=== PATIENT | male | born 1945 | race Caucasian/White ===

== ENCOUNTER 2016-11-28 15:44 | Observation (INO) | payer OTHER ==
[2016-11-28] VITALS (7 sets, daily range): BP systolic 137–180; BP diastolic 71–87; PULSE 50–71; RESP 16–20; TEMP 97.7–98.2; O2SAT 96–100
[~2016-11-28] VITALS: Ht 170.2 cm; Wt 76.0 kg
[2016-11-28] MEDS ORDERED: BACL10TA PO (16:05)
[2016-11-28] MEDS ORDERED: ASPI81CH CHEW (16:08)
[2016-11-28] MEDS ORDERED: TOPI1TAB31 PO (16:08)
[2016-11-28] MEDS ORDERED: VENL75TA PO (16:08)
--- NOTE | 2016-11-28 16:12 | PD ---
HPI Chief Complaint: Neuro Symptoms/ Deficits Time Seen by Provider: 16:12 Travel History International Travel<30 days: No Contact w/Intl Traveler<30days: No Traveled to known affect area: No History of Present Illness HPI 71-year-old male with a history of hyperlipidemia, anxiety, migraine headaches presents to the emergency department for evaluation of slurred speech and headache. The patient states that 2 hours ago he experienced slurred speech and difficulty speaking that lasted less than 60 seconds. States that he was the only person that noticed this slurred speech, no one else commented on it however he could feel that he had difficulty speaking. States that since then his speech has been normal. States that he has developed a headache over the past 2 hours. This is a slow onset headache, no thunderclap headache, denies this as the worst headache of his life. He does have a history of migraine headaches. He is also complaining of nausea. He denies any weakness, numbness or tingling, vision changes, dizziness, gait instability, chest pain, shortness of breath, abdominal pain, vomiting or diarrhea. PFSH Past Medical History Narrative Medical Hyperlipidemia Migraine headaches Anxiety Social History Tobacco Use: No Allergies-Medications (Allergen,Severity, Reaction): Coded Allergies: Bactrim (Verified Allergy, Severe, Hives, 11/28/16) Reported Meds & Prescriptions Reported Meds & Active Scripts Active Reported Multiple Vitamin 1 Tab 1 Tab PO DAILY Omeprazole 20 Mg Tab 20 Mg PO DAILY Quetiapine (Quetiapine Fumarate) 25 Mg Tab 25 Mg PO HS Topiramate 100 Mg Tab 100 Mg PO BID Baclofen 10 Mg Tab 10 Mg PO BID Review of Systems Except as stated in HPI: all other systems reviewed are Neg Physical Exam Narrative GENERAL: Well-nourished and well-developed pleasant male patient in no acute distress who is nontoxic appearing. SKIN: Warm and dry. HEAD: Normocephalic and atraumatic. EYES: No injection, drainage, or hyphema noted. PERRLA. EOMI. ENT: No nasal drainage noted. Oropharynx is clear. NECK: Supple and the trachea is midline. CARDIOVASCULAR: Regular rate and rhythm. RESPIRATORY: Breath sounds are equal bilaterally with no accessory muscle use, wheezing, rhonchi, or crackles. GASTROINTESTINAL: Abdomen is soft, non-tender, and nondistended. MUSCULOSKELETAL: No obvious deformities, swelling, cyanosis, or ecchymosis is present throughout the upper and lower extremities. Patient has full range of motion without any signs of neurovascular compromise. Strength 5/5 upper and lower extremities and equal bilaterally. NEUROLOGICAL: Awake, alert, and oriented. Normal speech and gait. Sensation is intact. Normal eldjly-da-etaa test. Normal rapid alternating movements. Normal ssgy-yf-vbxr test. Normal visual mon. Cranial nerves are grossly intact. Data Data Last Documented VS Vital Signs Date Time Temp Pulse Resp B/P Pulse Ox O2 Delivery O2 Flow Rate FiO2 11/28/16 15:58 70 18 180/87 100 Room Air 11/28/16 15:47 98.2 Orders Electrocardiogram (11/28/16 16:03) Prothrombin Time / Inr (Pt) (11/28/16 16:03) Act Partial Throm Time (Ptt) (11/28/16 16:03) Complete Blood Count With Diff (11/28/16 16:03) Comprehensive Metabolic Panel (11/28/16 16:03) Troponin I (11/28/16 16:03) Ct Brain W/O Iv Contrast(Rout) (11/28/16 16:03) Chest, Single Ap (11/28/16 16:03) Ecg Monitoring (11/28/16 16:03) Iv Access Insert/Monitor (11/28/16 16:03) Oximetry (11/28/16 16:03) Sodium Chloride 0.9% Flush (Ns Flush) (11/28/16 16:15) Ondansetron Inj (Zofran Inj) (11/28/16 16:15) Morphine Inj (Morphine Inj) (11/28/16 16:45) Admit Order (Ed Use Only) (11/28/16 17:36) Place In Observation (11/28/16 ) Vital Signs (Adult) Q4H (11/28/16 17:33) Neuro Checks Q4H (11/28/16 17:33) Activity Bed Rest With Brp (11/28/16 17:33) Bedside Glucose KASEY.AC&HS (11/28/16 17:33) Supervisor Wet Room / Telemetry .CONTINUOUS (11/28/16 17:33) Diet Npo (11/28/16 Dinner) D5-1/2 Ns + Kcl 20 Meq Inj (D5-1/2 Ns + (4/26/17 17:33) Sodium Chloride 0.9% Flush (Ns Flush) (11/28/16 17:45) Sodium Chloride 0.9% Flush (Ns Flush) (11/28/16 21:00) Acetaminophen (Tylenol) (11/28/16 17:45) Ondansetron Inj (Zofran Inj) (11/28/16 17:45) Basic Metabolic Panel (Bmp) (11/29/16 06:00) Complete Blood Count With Diff (11/29/16 06:00) Heparin Inj (Heparin Inj) (11/28/16 18:00) Naloxone Inj (Narcan Inj) (11/28/16 17:45) Vital Signs (Adult) Q2HX12,Q4H (11/28/16 17:33) Nih Stroke Scale - Nihss .Daily (11/28/16 17:33) Activity Oob Ad Hanny (11/28/16 17:33) Nursing Bedside Swallow Assess .ONCE (11/28/16 17:33) Scd Bilateral/Knee High KASEY.QSHIFT (11/28/16 17:33) Hemoglobin (Hgb) A1c (11/28/16 17:33) Lipid Profile (11/29/16 06:00) Us Carotid Arteries Comp Bilat (11/28/16 ) Mri Brain W/O Contrast (11/28/16 ) Consult Neurology (11/28/16 ) Sodium Chloride 0.9% Flush (Ns Flush) (11/28/16 21:00) Sodium Chloride 0.9% Flush (Ns Flush) (11/28/16 17:45) ^ Discontinue Insulin Orders (11/28/16 17:33) Insulin Aspart Supplemtl Scale (Novolog (11/28/16 21:00) Dextrose 50% In Reji (Vial) Inj (D50w (Vi (11/28/16 17:45) Glucagon Inj (Glucagon Inj) (11/28/16 17:45) Aspirin Chew (Aspirin Chew) (11/28/16 17:45) Labs Laboratory Tests Test 11/28/16 16:00 White Blood Count 5.6 TH/MM3 Red Blood Count 4.49 MIL/MM3 Hemoglobin 13.9 GM/DL Hematocrit 42.0 % Mean Corpuscular Volume 93.5 FL Mean Corpuscular Hemoglobin 30.9 PG Mean Corpuscular Hemoglobin 33.1 % Concent Red Cell Distribution Width 13.8 % Platelet Count 188 TH/MM3 Mean Platelet Volume 7.8 FL Neutrophils (%) (Auto) 39.4 % Lymphocytes (%) (Auto) 44.2 % Monocytes (%) (Auto) 9.3 % Eosinophils (%) (Auto) 6.5 % Basophils (%) (Auto) 0.6 % Neutrophils # (Auto) 2.2 TH/MM3 Lymphocytes # (Auto) 2.5 TH/MM3 Monocytes # (Auto) 0.5 TH/MM3 Eosinophils # (Auto) 0.4 TH/MM3 Basophils # (Auto) 0.0 TH/MM3 CBC Comment DIFF FINAL Differential Comment Prothrombin Time 11.1 SEC Prothromb Time International 1.0 RATIO Ratio Activated Partial 26.1 SEC Thromboplast Time Sodium Level 143 MEQ/L Potassium Level 3.7 MEQ/L Chloride Level 110 MEQ/L Carbon Dioxide Level 25.0 MEQ/L Anion Gap 8 MEQ/L Blood Urea Nitrogen 15 MG/DL Creatinine 1.10 MG/DL Estimat Glomerular Filtration 66 ML/MIN Rate Random Glucose 122 MG/DL Calcium Level 8.5 MG/DL Total Bilirubin 0.2 MG/DL Aspartate Amino Transf 24 U/L (AST/SGOT) Alanine Aminotransferase 35 U/L (ALT/SGPT) Alkaline Phosphatase 63 U/L Troponin I LESS THAN 0.02 NG/ML Total Protein 7.7 GM/DL Albumin 3.8 GM/DL MDM Medical Decision Making Medical Screen Exam Complete: Yes Emergency Medical Condition: Yes Differential Diagnosis TIA versus CVA versus migraine headache versus hypertensive urgency versus other Narrative Course 71-year-old male presents to the emergency department for evaluation of slurred speech and headache. Patient is afebrile. He is slightly hypertensive with a blood pressure of 180/87. Otherwise vital signs within normal limits. He had an episode of slurred speech lasting less than 1 minute about 2 hours ago. No focal neurologic deficits on examination. His symptoms have resolved with the exception of a headache. IV access is obtained, labs were drawn and sent. Patient was encouraged on dribbles oximeter monitoring. He is administered IV Zofran. CBC is unremarkable. CMP is unremarkable. Troponin is less than 0.02. Coags are unremarkable. Chest x-ray is negative for any acute abnormalities. Head CT is negative for any acute abnormalities. Labs and imaging are reassuring however the patient's description of symptoms is concerning for TIA. The patient will be kept in observation for TIA/CVA workup. I discussed this with the patient and family who are agreeable with this plan. I discussed the case with my attending physician Dr. Coffey who is aware of the patients history, physical examination findings, and treatment plan. Physician Communication Physician Communication I spoke with Dr. Valdemar ROSARIO who agrees to keep the patient under her service for observation. Diagnosis Primary Impression: TIA (transient ischemic attack) Qualified Code: G45.9 - Transient cerebral ischemia, unspecified type Admitting Information Admitting Physician Requests: Observation Brunilda Nguyen Nov 28, 2016 16:12
[2016-11-28] MEDS ORDERED: ONDANSETRON HCL 4 MG/2 ML VIAL IV PUSH ONE (16:15)
[2016-11-28] MEDS ORDERED: SODIUM CHLORIDE 0.9% FLUSH 10 ML FLUSH IVF PRN (16:15)
--- NOTE | 2016-11-28 16:22 | RADRPT ---
EXAM DATE/TIME: 11/28/2016 16:14 [facility] COMPARISON: No previous studies available for comparison. INDICATIONS : Short of breath. MEDICAL HISTORY : None. SURGICAL HISTORY : None. ENCOUNTER: Initial ACUITY: 1 day PAIN SCORE: 0/10 LOCATION: Bilateral chest FINDINGS: A single view of the chest demonstrates the lungs to be symmetrically aerated without evidence of mas s, infiltrate or effusion. The cardiomediastinal contours are unremarkable. Osseous structures are intact. CONCLUSION: No acute disease. Jack Ford MD on November 28, 2016 at 16:19 Board Certified Radiologist. This report was verified electronically.
[2016-11-28 16:26] LABS: AUTOMATED NEUTROPHIL # 2.2 TH/MM3 (1.8-7.7); BASOPHIL % 0.6 % (0.0-2.0); EOSINOPHIL # 0.4 TH/MM3 (0-0.4); EOSINOPHIL % 6.5 % (0.0-4.0); HEMO FLAGS DIFF FINAL; LYMPH % 44.2 % (9.0-44.0); LYMPHOCYTE # 2.5 TH/MM3 (1.0-4.8); MEAN CELL VOLUME 93.5 FL (80.0-100.0); MEAN CORPUSCULAR HEMOGLOBIN 30.9 PG (27.0-34.0); MEAN CORPUSCULAR HGB CONC 33.1 % (32.0-36.0); MONO % 9.3 % (0.0-8.0); NEUT % 39.4 % (16.0-70.0); PLATELET COUNT 188 TH/MM3 (150-450); RED BLOOD COUNT 4.49 MIL/MM3 (4.50-5.90); RED CELL DISTRIBUTION WIDTH 13.8 % (11.6-17.2); WHITE BLOOD COUNT 5.6 TH/MM3 (4.0-11.0)
[2016-11-28 16:29] LABS: APTT (PATIENT) 26.1 SEC (24.3-30.1); PROTHROMBIN TIME - PATIENT 11.1 SEC (9.8-11.6)
--- NOTE | 2016-11-28 16:31 | RADRPT ---
EXAM DATE/TIME: 11/28/2016 16:18 [facility] COMPARISON: No previous studies available for comparison. INDICATIONS : Possible CVA with headache. RADIATION DOSE: 56.35 CTDIvol (mGy) MEDICAL HISTORY : Skin cancer SURGICAL HISTORY : None. ENCOUNTER: Initial ACUITY: 1 day PAIN SCALE: 2/10 LOCATION: Bilateral cranial TECHNIQUE: Multiple contiguous axial images were obtained of the head. Using automated exposure control and adj ustment of the mA and/or kV according to patient size, radiation dose was kept as low as reasonably a chievable to obtain optimal diagnostic quality images. FINDINGS: CEREBRUM: The ventricles are normal for age. No evidence of midline shift, mass lesion, hemorrhage or acute in farction. No extra-axial fluid collections are seen. POSTERIOR FOSSA: The cerebellum and brainstem are intact. The 4th ventricle is midline. The cerebellopontine angle i s unremarkable. EXTRACRANIAL: The visualized portion of the orbits is intact. There is mild mucosal thickening in the left maxillar y sinus SKULL: The calvaria is intact. No evidence of skull fracture. CONCLUSION: 1. No acute hemorrhage, mass or evidence of infarction. 2. Mucosal thickening in the left maxillary sinus. Jack Ford MD on November 28, 2016 at 16:26 Board Certified Radiologist. This report was verified electronically.
[2016-11-28] MEDS ORDERED: OMEP20TA PO (16:34)
[2016-11-28] MEDS ORDERED: QUET1TAB7 PO (16:34)
[2016-11-28] MEDS ORDERED: MULTTAB67 PO (16:34)
[2016-11-28 16:35] LABS: ALT (GPT) 35 U/L (12-78); ANION GAP 8 MEQ/L (5-15); AST (GOT) 24 U/L (15-37); BLOOD UREA NITROGEN 15 MG/DL (7-18); CHLORIDE 110 MEQ/L (98-107); GLOMERULAR FILTRATION RATE 66 ML/MIN (>89); POTASSIUM 3.7 MEQ/L (3.5-5.1); SODIUM (NA) 143 MEQ/L (136-145)
[2016-11-28 16:39] LABS: ALKALINE PHOSPHATASE 63 U/L (45-117); TOTAL BILIRUBIN ADULT 0.2 MG/DL (0.2-1.0)
[2016-11-28] MEDS ORDERED: MORPHINE SULFATE 4 MG/ML INJ IV PUSH ONE (16:45)
[2016-11-28] MEDS ORDERED: ONDANSETRON HCL 4 MG/2 ML VIAL IVP PRN (17:45)
[2016-11-28] MEDS ORDERED: ASPIRIN 81 MG CHEW TAB PO ONE (17:45)
[2016-11-28] MEDS ORDERED: ACETAMINOPHEN 325 MG TAB PO PRN (17:45)
[2016-11-28] MEDS ORDERED: NALOXONE HCL 0.4 MG/ML AMP IV PRN (17:45)
[2016-11-28] MEDS ORDERED: GLUCAGON 1 MG/ML VIAL OTHER PRN (17:45)
[2016-11-28] MEDS ORDERED: SODIUM CHLORIDE 0.9% FLUSH 10 ML FLUSH IV FLUSH PRN ×2 (17:45)
[2016-11-28] MEDS ORDERED: DEXTROSE 50% IN WATER 50 ML VIAL(D50) IV PUSH PRN (17:45)
[2016-11-28] MEDS: HEPARIN SODIUM - SQ 10,000 UNITS/ML VIAL SQ SCH (17:59)
--- NOTE | 2016-11-28 18:03 | HHI.PR ---
Objective Objective Results - Vital Signs Date Time Temp Pulse Resp B/P Pulse Ox O2 Delivery O2 Flow Rate FiO2 11/28/16 15:58 70 18 180/87 100 Room Air 11/28/16 15:47 98.2 71 17 162/77 98 Result Diagram: 11/28/16 1600 11/28/16 1600 Other Results Laboratory Tests Test 11/28/16 16:00 White Blood Count 5.6 Red Blood Count 4.49 Hemoglobin 13.9 Hematocrit 42.0 Mean Corpuscular Volume 93.5 Mean Corpuscular Hemoglobin 30.9 Mean Corpuscular Hemoglobin 33.1 Concent Red Cell Distribution Width 13.8 Platelet Count 188 Mean Platelet Volume 7.8 Neutrophils (%) (Auto) 39.4 Lymphocytes (%) (Auto) 44.2 Monocytes (%) (Auto) 9.3 Eosinophils (%) (Auto) 6.5 Basophils (%) (Auto) 0.6 Neutrophils # (Auto) 2.2 Lymphocytes # (Auto) 2.5 Monocytes # (Auto) 0.5 Eosinophils # (Auto) 0.4 Basophils # (Auto) 0.0 CBC Comment DIFF FINAL Differential Comment Prothrombin Time 11.1 Prothromb Time International 1.0 Ratio Activated Partial 26.1 Thromboplast Time Sodium Level 143 Potassium Level 3.7 Chloride Level 110 Carbon Dioxide Level 25.0 Anion Gap 8 Blood Urea Nitrogen 15 Creatinine 1.10 Estimat Glomerular Filtration 66 Rate Random Glucose 122 Calcium Level 8.5 Total Bilirubin 0.2 Aspartate Amino Transf 24 (AST/SGOT) Alanine Aminotransferase 35 (ALT/SGPT) Alkaline Phosphatase 63 Troponin I LESS THAN 0.02 Total Protein 7.7 Albumin 3.8 Physical Exam Physical Exam PT seen & examined s/p transient slurring of speech Headache ASA neuro w/u neuro consult d/w messi H&P to follow Holly Branch MD Nov 28, 2016 18:03
[2016-11-28] MEDS: D5-1/2 NS + KCL 20 MEQ INJ 1,000 ML IV SCH (18:14)
--- NOTE | 2016-11-28 19:24 | RADRPT ---
EXAM DATE/TIME: 11/28/2016 18:20 [facility] COMPARISON: No previous studies available for comparison. INDICATIONS : Transient ischemic attack. MEDICAL HISTORY : Hyperlipidemia. Migraines. Anxiety. Slurred speech. SURGICAL HISTORY : None. ENCOUNTER: Initial ACUITY: 1 day PAIN SCORE: 0/10 LOCATION: Bilateral neck PEAK SYSTOLIC VELOCITIES (cm/sec): ICA/CCA RATIO: Right: 0.9 Left: 0.9 ICA: Right: 69 Left: 70 CCA: Right: 79 Left: 78 ECA: Right: 75 Left: 74 VERTEBRAL: Right: 42 antegrade Left: 58 antegrade Elevated flow velocities and ICA/CCA ratios have been found to correlate with increased degrees of vessel stenosis, calculated as percentage of diameter relative to a normal segment of distal ICA/CCA FINDINGS: RIGHT CAROTID: Trace plaque of the bulb and proximal internal carotid artery. LEFT CAROTID: Very mild plaque of the bulb and proximal internal carotid artery. VERTEBRAL ARTERIES: Antegrade flow is seen in both vertebral arteries. MISCELLANEOUS: None. CONCLUSION: Minimal amounts of plaque of both bifurcations. No carotid stenosis. Ramin Ontiveros MD on November 28, 2016 at 19:22 Board Certified Radiologist. This report was verified electronically.
[2016-11-28] MEDS: SODIUM CHLORIDE 0.9% FLUSH 10 ML FLUSH IV FLUSH SCH ×2 (20:23)
[2016-11-28] MEDS ORDERED: QUEtiapine FUMARATE 25 MG TAB PO SCH (21:00)
[2016-11-28] MEDS: INSULIN ASPART SUPPLEMENTAL SCALE SQ SCH (21:00)
[2016-11-28] MEDS: TOPIRAMATE 100 MG TAB PO SCH (21:37)
[2016-11-28] MEDS: BACLOFEN 10 MG TAB PO SCH (21:37)
[2016-11-28 22:28] LABS: HEMOGLOBIN A1a 1.2 %; HEMOGLOBIN A1b 1.8 %; HEMOGLOBIN Ao 84.4 %; HEMOGLOBIN LA1C 2.1 %; HEMOGLOBIN P3 3.9 %
[2016-11-29 03:25] VITALS: BP 112/58; PULSE 96; RESP 21; TEMP 97.6; O2SAT 96
[2016-11-29] MEDS: D5-1/2 NS + KCL 20 MEQ INJ 1,000 ML IV SCH ×2 (05:55→13:33)
[2016-11-29] MEDS: HEPARIN SODIUM - SQ 10,000 UNITS/ML VIAL SQ SCH (05:59)
[2016-11-29] MEDS: INSULIN ASPART SUPPLEMENTAL SCALE SQ SCH ×3 (06:03→16:00)
[2016-11-29 07:35] VITALS: BP 118/62; PULSE 55; RESP 20; TEMP 97.9; O2SAT 97
--- NOTE | 2016-11-29 08:23 | MH ---
cc: DICK BRANCH MD DATE OF ADMISSION 11/28/2016 DATE OF 1945 CHIEF COMPLAINT Slurred speech. Travel in the last 30 days none. HISTORY OF PRESENT ILLNESS This is a pleasant 71-year-old white male who has been in his usual state of health up until today. He states that he was riding in the back seat of a car going [place] the beach when he noticed his speech being slurred. He felt like that he could not get his words out and states that it only lasted for a few seconds. The patient states that since then he has started developing a mild headache. The patient does have a history of migraines and takes medication daily but states that he has not had a migraine headache in several years. The patient denies any weakness in his extremities. 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 He denies any chest pain. No shortness of breath. Denies any dysuria and states that he has had no problems with urination. Bowel regimen is normal. The patient had BMs x2 yesterday. The patient denies any chest pain. The patient states that he has never had any symptoms for stroke, but he had a funny sensation that he could not describe. The patient's affect is rather flat. He is a fair historian but does not elaborate on any information. No abdominal pain. He appears comfortable and has just been medicated for his headache. PAST MEDICAL HISTORY Includes: 1. Migraine headaches. 2. Anxiety. 3. Hyperlipidemia. 4. Skin cancer. 5. Muscle spasms. 6. Gastroesophageal reflux disease. 7. Seasonal allergies. PAST SURGICAL HISTORY 1. Removal of skin cancers on the top of his head. 2. Bilateral eye implants. ALLERGIES BACTRIM. SOCIAL HISTORY The patient has an occasional glass of wine socially, it is only every three to four weeks. The patient is , currently lives in the home with his . Denies any tobacco and no illicit drugs. MEDICATIONS Reported: 1. Multivitamins. 2. Omeprazole. 3. Baclofen. 4. Quetiapine. 5. Topiramate. REVIEW OF SYSTEMS 12-point review was obtained but information was sketchy and limited. Positives are noted in HPI, otherwise negative exam or unremarkable. PHYSICAL EXAMINATION VITAL SIGNS: Temperature is 98.2, pulse 71, respirations 18, blood pressure 162/77 and 180/87, O2 sat 98% on room air. GENERAL: Well-nourished, elderly white male looks to be his stated age, resting on a stretcher. He is calm and cooperative. SKIN: [place], warm and dry. HEENT: Atraumatic, normocephalic. Bilateral lens implants. Mucous membranes are pink and moist. No scleral icterus. NECK: Supple. CARDIOVASCULAR: S1-S2, soft systolic murmur grade 2/6 noted at the lower left sternal border. He has no edema and his pulses are intact. LUNGS: Sounds essentially clear anteriorly and posteriorly with no wheezes, rales or rhonchi. ABDOMEN: Round, soft, nontender. Active bowel sounds in all four quads. MUSCULOSKELETAL: He has equal hand laborer hide house. He can move his lower extremities. I see no weakness left to right. NEUROLOGIC: He is a fair historian. Speech is clear and normal appearing now. PSYCHIATRIC: Mood and affect are flat, but appropriate. DIAGNOSTIC DATA Sodium 143, potassium 3.7, chloride 110, carbon dioxide 25, anion gap 8, BUN 15, creatinine 1.1, GFR 66, random glucose 122. Hemoglobin A1c is pending. Troponin is less than 0.02. Albumin 3.8, total protein 7.7, WBC count 5.6, RBC 4.49, hemoglobin 13.9, hematocrit 42, platelet count 188. Differential blood count shows abnormal leukocyte percentage 44.2, monocyte 9.3, eosinophil 6.5. IMAGING Diagnostic data, chest x-ray is no acute disease examination. Head CT scan no acute hemorrhage, mass effect or infarction. Mucosal thickening of the left maxillary sinus. ASSESSMENT 1. Possible TIA, rule out CVA. 2. Migraine headaches. 3. Hyperlipidemia. 4. Hypertension. 5. Anxiety disorder. Our plan is to observe with observation. His vital signs will be q.4h along with neuro checks q.4. and as warranted. Bedrest activity for now. ECG monitoring. We will start the patient on aspirin. Check a lipid profile. Do a 2-D echo. Reconcile his home meds. Place him on Accu-Cheks a.c. and at bedtime with sliding scale. Currently diet will be n.p.o. We will start him on IV fluids D5 half normal with 20 of KCl. We will check carotid artery ultrasound. The patient states that he thought he had some blockage approximately 5 years ago but has not had any further testing since. After these tests are evaluated, the patient's course of treatment can be decided any further. We will consult neurology for their expert opinion on this case. The patient is full code, full aggressive care and we will follow. Dictated by: NYA Galvan MD DONOVAN Alejo/CABRERA /6:17 PM /8:20 AM PT seen & examined s/p transient slurring of speech Headache ASA neuro w/u neuro consult d/w messi H&P to follow Dick Branch MD Nov 28, 2016 18:03 [facility]
[2016-11-29 08:40] LABS: AUTOMATED NEUTROPHIL # 2.7 TH/MM3 (1.8-7.7); BASOPHIL % 0.3 % (0.0-2.0); EOSINOPHIL # 0.3 TH/MM3 (0-0.4); EOSINOPHIL % 4.6 % (0.0-4.0); HEMATOCRIT 40.7 % (39.0-51.0); HEMO FLAGS DIFF FINAL; LYMPH % 38.6 % (9.0-44.0); LYMPHOCYTE # 2.2 TH/MM3 (1.0-4.8); MEAN CELL VOLUME 93.3 FL (80.0-100.0); MEAN CORPUSCULAR HEMOGLOBIN 31.5 PG (27.0-34.0); MEAN CORPUSCULAR HGB CONC 33.8 % (32.0-36.0); MONO % 8.2 % (0.0-8.0); NEUT % 48.3 % (16.0-70.0); PLATELET COUNT 190 TH/MM3 (150-450); RED BLOOD COUNT 4.36 MIL/MM3 (4.50-5.90); RED CELL DISTRIBUTION WIDTH 13.5 % (11.6-17.2); WHITE BLOOD COUNT 5.6 TH/MM3 (4.0-11.0)
[2016-11-29] MEDS: BACLOFEN 10 MG TAB PO SCH (08:48)
[2016-11-29] MEDS: TOPIRAMATE 100 MG TAB PO SCH (08:48)
[2016-11-29] MEDS: SODIUM CHLORIDE 0.9% FLUSH 10 ML FLUSH IV FLUSH SCH ×2 (08:48)
[2016-11-29] MEDS ORDERED: ASPIRIN 325 MG TAB PO SCH (09:00)
--- NOTE | 2016-11-29 09:02 | HHI.PR ---
Subjective Subjective Remarks no slurring of speech no paresthesia mild frontal headache improving no n/v no cp no sob no fever at bsd Review of Systems Constitutional Constitutional Remarks 12 point ROS completed, negative except as noted above Vitals/Results Vital Signs Vital Signs Date Time Temp Pulse Resp B/P Pulse Ox O2 Delivery O2 Flow Rate FiO2 11/29/16 07:35 97.9 55 20 118/62 97 11/29/16 03:25 97.6 96 21 112/58 96 11/29/16 01:10 22 11/28/16 23:46 97.7 51 20 156/74 96 11/28/16 23:30 50 11/28/16 21:04 50 16 137/71 97 Room Air 11/28/16 19:21 50 18 159/74 100 Room Air 11/28/16 18:23 52 18 139/73 97 11/28/16 18:15 16 11/28/16 15:58 70 18 180/87 100 Room Air 11/28/16 15:47 98.2 71 17 162/77 98 CBC/BMP: 11/29/16 0620 11/28/16 1600 Lab Results Laboratory Tests Test 11/28/16 11/29/16 16:00 06:20 White Blood Count 5.6 TH/MM3 5.6 TH/MM3 Red Blood Count 4.49 MIL/MM3 4.36 MIL/MM3 Hemoglobin 13.9 GM/DL 13.7 GM/DL Hematocrit 42.0 % 40.7 % Mean Corpuscular Volume 93.5 FL 93.3 FL Mean Corpuscular Hemoglobin 30.9 PG 31.5 PG Mean Corpuscular Hemoglobin 33.1 % 33.8 % Concent Red Cell Distribution Width 13.8 % 13.5 % Platelet Count 188 TH/MM3 190 TH/MM3 Mean Platelet Volume 7.8 FL 8.4 FL Neutrophils (%) (Auto) 39.4 % 48.3 % Lymphocytes (%) (Auto) 44.2 % 38.6 % Monocytes (%) (Auto) 9.3 % 8.2 % Eosinophils (%) (Auto) 6.5 % 4.6 % Basophils (%) (Auto) 0.6 % 0.3 % Neutrophils # (Auto) 2.2 TH/MM3 2.7 TH/MM3 Lymphocytes # (Auto) 2.5 TH/MM3 2.2 TH/MM3 Monocytes # (Auto) 0.5 TH/MM3 0.5 TH/MM3 Eosinophils # (Auto) 0.4 TH/MM3 0.3 TH/MM3 Basophils # (Auto) 0.0 TH/MM3 0.0 TH/MM3 CBC Comment DIFF FINAL DIFF FINAL Differential Comment Prothrombin Time 11.1 SEC Prothromb Time International 1.0 RATIO Ratio Activated Partial 26.1 SEC Thromboplast Time Sodium Level 143 MEQ/L Potassium Level 3.7 MEQ/L Chloride Level 110 MEQ/L Carbon Dioxide Level 25.0 MEQ/L Anion Gap 8 MEQ/L Blood Urea Nitrogen 15 MG/DL Creatinine 1.10 MG/DL Estimat Glomerular Filtration 66 ML/MIN Rate Random Glucose 122 MG/DL Hemoglobin A1c 6.1 % Calcium Level 8.5 MG/DL Total Bilirubin 0.2 MG/DL Aspartate Amino Transf 24 U/L (AST/SGOT) Alanine Aminotransferase 35 U/L (ALT/SGPT) Alkaline Phosphatase 63 U/L Troponin I LESS THAN 0.02 NG/ML Total Protein 7.7 GM/DL Albumin 3.8 GM/DL Physical Exam General General Appearance: Well Developed, Well Nourished, No Acute Distress Eyes Eye Exam: Pupils Equal, Pupils Reactive Ears & Nose Ears & Nose Exam: Nasal Mucosa [place] Throat Throat Exam: Oral Mucosa [place] & Moist Neck Neck Exam: Neck Supple, Trachea Midline Pulmonary Resp Exam: No Distress Cardiology CV Exam: Regular, Normal Sinus Rhythm, Good Perfusion Gastrointestinal/Abdomen GI Exam: Soft, Non-Tender, Bowel Sounds Present, Non-Distended Musculoskeletal MS Exam: Joints Intact Integumentary Skin Exam: Warm, Dry Extremeties Extremities Exam: No Edema, Pedal Pulses Palpable Neurologic Neuro Exam: Alert, Awake, Oriented, Speech Clear, Moving All Extremities, No Focal Deficits Psychiatric Psych Exam: Appropriate Responses VTE Prophylaxis VTE Prophylaxis Device: SCDs Assessment/Plan Assessment/Plan ASSESSMENT 1. Possible TIA, rule out CVA. 2. Migraine headaches. 3. Hyperlipidemia. 4. Hypertension. 5. Anxiety disorder. Plan continue with neuro checks ok for HOB up ok to eat, heart healthy diet NS at 100/hr PT eval today continue ASA brain MRI and echo pending CUS no stenosis CT head no acute findings neurology input pending continue with accu-Cheks a.c. and at bedtime headache resolving continue Topamax Lipid profile noted SCDs for DVT prophylaxis poss dc later today if work up negative D/W pt and D/W Dr. Branch This patient was seen by myself and Dr. Branch, this note is written on his behalf. [place] Pat[facility] Nov 29, 2016 09:02
[2016-11-29 09:04] LABS: HDL CHOLESTEROL 48.3 MG/DL (40.0-60.0); POTASSIUM 3.9 MEQ/L (3.5-5.1)
[2016-11-29] MEDS ORDERED: ASPI325T PO (09:50)
--- NOTE | 2016-11-29 09:51 | HHI.DCPOC ---
Discharge Care Plan Diagnosis: (1) TIA (transient ischemic attack) Your Health Problems Are: Difficulty with ADL Goals to Promote Your Health * To prevent worsening of your condition and complications * To maintain your health at the optimal level Directions to Meet Your Goals Take your medications as prescribed Follow your dietary instruction Follow activity as directed Keep your appointments as scheduled Take your immunizations and boosters as scheduled If your symptoms worsen call your PCP, if no PCP go to Urgent Care Center or Emergency Room Smoking is Dangerous to Your Health. Avoid second hand smoke Call the 24-hour hour crisis hotline for domestic abuse at [place] [facility]. [facility] Nov 29, 2016 09:50
[2016-11-29 11:23] VITALS: BP 128/64; PULSE 60; RESP 20; TEMP 97.9; O2SAT 98
--- NOTE | 2016-11-29 11:24 | RADRPT ---
EXAM DATE/TIME: 11/29/2016 10:20 [facility] COMPARISON: CT BRAIN W/O CONTRAST, November 28, 2016, 16:18. INDICATIONS : Slurred speech. TIA. MEDICAL HISTORY : Venous insufficiency. SURGICAL HISTORY : Plastic surgery, face. ENCOUNTER: Subsequent ACUITY: 2 day PAIN SCORE: 0/10 LOCATION: head. TECHNIQUE: Multiplanar, multisequence MRI of the brain was performed without contrast. FINDINGS: CEREBRUM: The ventricles are normal for age. No evidence of midline shift, mass lesion, hemorrhage or acute in farction. No extraaxial fluid collections are seen. The pituitary gland and suprasellar cistern are normal in configuration. WHITE MATTER: No significant signal abnormalities are seen in the white matter. POSTERIOR FOSSA: The cerebellum and brainstem are intact. The 4th ventricle is midline. The cerebellopontine angle is unremarkable. The cerebellar tonsils are normal in position. DIFFUSION IMAGING: No focal areas of restricted diffusion are seen. No evidence of acute infarction. EXTRACRANIAL: The visualized portions of the orbits and paranasal sinuses are unremarkable. CONCLUSION: 1. No evidence of acute intracranial pathology. No masses are identified. Kana Cabrera MD on November 29, 2016 at 11:20 Board Certified Radiologist. This report was verified electronically.
--- NOTE | 2016-11-29 12:53 | MB ---
cc: SKYLER CHOWDHURY M.D. DATE OF CONSULTATION: 11/29/2016 DATE OF : 1945 REASON FOR CONSULTATION TIA, dysarthria. HISTORY OF PRESENT ILLNESS A 71-year-old man who was in his usual state of health up until the day of admission riding in the back seat of a car, going down to the beach when he started having trouble pronouncing words, slurred. He could not get the words out properly, some mild headache. He has a history of migraines, he takes topiramate for that. He is under the care of his primary care. Denied any weakness, numbness, tingling, loss of awareness or consciousness. PAST MEDICAL HISTORY 1. Migraines. 2. Anxiety. 3. Hyperlipidemia. 4. Skin cancer. 5. Reflux. 6. Allergies. 7. Muscle spasms. PAST SURGICAL HISTORY 1. Skin cancer on the head. 2. Bilateral eye implants. ALLERGIES BACTRIM. SOCIAL HISTORY Socially he drinks wine. He is . No tobacco or drugs. MEDICATION Home medicines are: 1. Multivitamins. 2. Omeprazole. 3. Baclofen. 4. Seroquel. 5. Topiramate. He states his primary care doctor is Dr. Vu. PHYSICAL EXAMINATION VITAL SIGNS: His temperature 97.9, pulse 55, respiratory rate 20, blood pressure 118/62. NECK: Neck is supple. I do not appreciate any carotid bruits. HEART: Regular. LUNGS: Lungs are clear. NEURO: He is awake, alert. He is oriented and fluent. His pupils are reactive. Visual mon are full. Face is symmetrical. Tongue midline. Motor-renteria there is no drift. No leg lag. Cerebellar testing is normal. Toes are downgoing. Reflexes are 1-2+, normal sensory. Gait is withheld at this time. IMAGING STUDIES Carotid ultrasound shows mild plaquing, no significant stenosis. CT brain without any acute findings. LABORATORY DATA His labs are reviewed. His cholesterol is 141, triglycerides 167, LDL 59, HDL 48.3. IMPRESSION/PLAN Possible TIA, certainly in a 71-year-old man. Recommend at this point in time getting the echo and the MRI. He takes baby aspirin, certainly can be increased to full dose. His states that when he is compliant with his medicines his headaches are controlled. Continue his topiramate. He does not have a headache currently. I doubt this was a complicated migraine. He has never had one before but certainly is a possibility. Speech is not back to baseline. I would still error on the side of a TIA given his age and other risk factors. Continue his statin if he is already on it, blood pressure control, Lovenox for DVT prophylaxis. If his echo and MRI are unremarkable he can go home today with the increased dose of aspirin and have him follow up with neurology and his primary care in 2 weeks. MD JOHANNA Childs/LAKISHA /9:54 AM /12:33 PM
[2016-11-29] MEDS ORDERED: ATOR20TA15 PO (16:22)
--- NOTE | 2016-11-29 16:33 | EC ---
Study Study Date:11/29/2016 STUDY CONCLUSIONS SUMMARY - Procedure narrative: Transthoracic echocardiography. Image quality was adequate. Scanning was performed from the parasternal, apical, and subcostal acoustic windows. - Left ventricle: The cavity size was normal. Wall thickness was normal. Systolic function was normal. The estimated ejection fraction was in the range of 50% to 55%. Wall motion was normal; there were no regional wall motion abnormalities. - Aortic valve: Trace regurgitation. - Mitral valve: Trace regurgitation. - Tricuspid valve: Trace regurgitation. If LV function is below 40, please consider prescribing an ACEI or ARB or document rationale for non-use. PROCEDURE DATA STUDY STATUS: Elective. Procedure: Transthoracic echocardiography. Image quality was adequate. Scanning was performed from the parasternal, apical, and subcostal acoustic windows. Study completion: The patient tolerated the procedure well. Transthoracic echocardiography. M-mode, complete 2D, complete spectral Doppler, and color Doppler. Patient status: Inpatient. CARDIAC ANATOMY LEFT VENTRICLE: The cavity size was normal. Wall thickness was normal. Systolic function was normal. The estimated ejection fraction was in the range of 50% to 55%. Wall motion was normal; there were no regional wall motion abnormalities. AORTIC VALVE: Trileaflet; normal thickness leaflets. Doppler: Transvalvular velocity was within the normal range. There was no stenosis. Trace regurgitation. AORTA: Aortic root: The aortic root was normal in size. MITRAL VALVE: Structurally normal valve. Doppler: Transvalvular velocity was within the normal range. There was no evidence for stenosis. Trace regurgitation. LEFT ATRIUM: The atrium was normal in size. RIGHT VENTRICLE: The cavity size was normal. Wall thickness was normal. PULMONIC VALVE: Doppler: Transvalvular velocity was within the normal range. There was no evidence for stenosis. No regurgitation. TRICUSPID VALVE: Structurally normal valve. Doppler: Transvalvular velocity was within the normal range. Trace regurgitation. PULMONARY ARTERY: The main pulmonary artery was normal-sized. Systolic pressure was within the normal range. RIGHT ATRIUM: The atrium was normal in size. PERICARDIUM: There was no pericardial effusion. SYSTEMIC VEINS: Inferior vena cava: The vessel was normal in size. BASIC MEASUREMENTS ADULT Normal Left ventricle LV internal dimension, ED, chordal level, *42.8 mm 43-52 PLAX LV internal dimension, ES, chordal level, 33 mm 23-38 PLAX Fractional shortening, chordal level, PLAX *23 % >29 LV posterior wall thickness, ED 6.38 mm IVS/LVPW ratio, ED *1.76 <1.3 Ventricular septum Septal thickness, ED 11.2 mm Aortic valve Leaflet separation 17 mm 15-26 Left atrium Anterior-posterior dimension 34 mm BASIC MEASUREMENTS ADULT Normal Aortic valve Leaflet separation 17 mm 15-26 Aorta Root diameter, ED 30 mm 20-37 DOPPLER MEASUREMENTS ADULT Normal Aortic valve Peak velocity, S 117 cm/s Mitral valve Peak E-wave velocity 68.6 cm/s Peak A-wave velocity 76.5 cm/s Peak E/A ratio 0.9 Tricuspid valve Regurgitant peak velocity 246 cm/s Peak RV-RA gradient, S 24 mm Hg Maximal regurgitant velocity 246 cm/s LEGEND: Mean values are shown as u=mean value. Asterisk (*) quiroga values outside specified normal range. Prepared and signed by Jake Valdovinos. [id number]
[2016-11-29] MEDS ORDERED: ATORVASTATIN 20 MG TAB PO SCH (21:00)
--- NOTE | 2016-12-03 08:19 | EKG ---
Date Performed: 11/28/2016 Time Performed: 18:50:24 PTAGE: 71 years EKG: SINUS BRADYCARDIA BORDERLINE ECG NO PREVIOUS TRACING DOCTOR: Kana Perkins Interpretating Date/Time 12/03/2016 08:16:31
== END 2016-11-29 17:56 | disposition home or self-care (01) ==
LOC: NEPE 15:44 → NEDA 17:37 → NEPHCDU 23:16
PROVIDERS: ADMIT Internal Medicine; ATTEND Internal Medicine
DX: G45.9 Transient cerebral ischemic attack, unspecified (principal); G43.909 Migraine, unspecified, not intractable, without status migrainosus; F41.9 Anxiety disorder, unspecified; E78.5 Hyperlipidemia, unspecified; I10 Essential (primary) hypertension; K21.9 Gastro-esophageal reflux disease without esophagitis; R94.31 Abnormal electrocardiogram [ECG] [EKG]; Z85.828 Personal history of other malignant neoplasm of skin
CPT/HCPCS: 70450; 70551; 71010; 80048; 80053; 80061; 82948; 83036; 84484; 85025; 85610; 85730; 93005; 93306; 93880; 96374; 96375; 97162; 99285; G0378; G8987; G8988; J1644; J2270; J2405; J3480